=== PATIENT | female | born 1990 | race African-American/Black ===

== ENCOUNTER 2017-12-12 07:34 | Emergency (ER) | payer MEDICAID ==
[~2017-12-12] VITALS: Ht 162.6 cm; Wt 65.0 kg
[2017-12-12 08:33] LABS: CLARITY URINE TURBID (CLEAR); COLOR URINE YELLOW (YELLOW); KETONES URINE TRACE (NEGATIVE); LEUKOCYTE ESTERASE URINE 3+ (NEGATIVE); NITRITE URINE POSITIVE (NEGATIVE); OCCULT BLOOD URINE 3+ (NEGATIVE); PH URINE 6.5 (4.5-8.0); PROTEIN URINE 2+ (NEGATIVE); SPECIFIC GRAVITY URINE 1.028 (1.005-1.030)
[2017-12-12] MEDS ORDERED: IBUPROFEN 600MG TABLET PO ONE (09:45)
[2017-12-12 10:01] VITALS: BP 122/84
== END 2017-12-12 10:02 | disposition home or self-care (01) ==
LOC: ER 07:56
DX: N39.0 Urinary tract infection, site not specified (principal); F17.200 Nicotine dependence, unspecified, uncomplicated; F12.10 Cannabis abuse, uncomplicated
CPT/HCPCS: 81003; 81025; 87077; 87086; 87186; 99284; Z7610

== ENCOUNTER 2018-01-08 08:33 | Emergency (ER) | payer MEDICAID, OTHER ==
[~2018-01-08] VITALS: Ht 162.6 cm; Wt 64.0 kg
[2018-01-08] MEDS ORDERED: DIAZEPAM 2 MG TABLET PO ONE (10:30)
[2018-01-08] MEDS ORDERED: MECLIZINE 25MG TABLET PO ONE (10:30)
[2018-01-08] MEDS ORDERED: ONDANSETRON 4MG ODT PO ONE (10:30)
[2018-01-08 11:06] LABS: BASOPHILS % 1.9 % (0.0-2.0); EOSINOPHILS % 3.4 % (0.0-5.0); HEMATOCRIT. 35.4 % (36.0-48.0); HEMOGLOBIN. 12.7 g/dL (12.0-16.0); LYMPHOCYTES % 37.5 % (20.0-50.0); MEAN CORPUSCULAR HEMOGLOBIN 34.2 pg (28.0-32.0); MEAN CORPUSCULAR VOLUME 95.6 fL (81.0-99.0); MEAN PLATELET VOLUME 7.9 fl (7.4-10.4); MONOCYTES % 6.7 % (2.0-8.0); NEUTROPHILS % 50.5 % (40.0-76.0); PLATELET 334 x1000/uL (130-400); RED CELL DISTRIBUTION WIDTH 12.5 % (11.6-14.6)
[2018-01-08 11:11] LABS: CHLORIDE 108 mEq/L (98-107)
[2018-01-08 11:57] LABS: HCG SCREEN NEGATIVE
[2018-01-08 12:11] VITALS: BP 114/69
== END 2018-01-08 13:11 | disposition home or self-care (01) ==
LOC: ER 08:33
DX: H81.09 Meniere's disease, unspecified ear (principal); R42 Dizziness and giddiness; F12.10 Cannabis abuse, uncomplicated; Z88.8 Allergy status to other drugs, medicaments and biological substances
CPT/HCPCS: 36415; 80048; 84703; 85025; 99284; Q0162; J8597

== ENCOUNTER 2018-01-30 08:18 | Emergency (ER) | payer MEDICAID ==
[~2018-01-30] VITALS: Ht 162.6 cm; Wt 66.0 kg
[2018-01-30 09:43] LABS: KETONES URINE TRACE (NEGATIVE); LEUKOCYTE ESTERASE URINE 3+ (NEGATIVE); NITRITE URINE NEGATIVE (NEGATIVE); OCCULT BLOOD URINE 3+ (NEGATIVE); PROTEIN URINE 2+ (NEGATIVE); SPECIFIC GRAVITY URINE 1.023 (1.005-1.030)
[2018-01-30 09:55] LABS: CLARITY URINE TURBID (CLEAR); COLOR URINE YELLOW (YELLOW)
[2018-01-30] MEDS ORDERED: PHENAZOPYRIDINE HCL 200MG TABLET PO ONE (12:30)
[2018-01-30] MEDS ORDERED: LEVOFLOXACIN 500MG TABLET PO ONE (12:30)
[2018-01-30] MEDS ORDERED: ONDANSETRON 4MG ODT PO ONE (12:30)
[2018-01-30] MEDS ORDERED: HYDROCODONE/ACETAMINOPHEN 5/325MG TABLET PO ONE (12:30)
[2018-01-30 14:10] VITALS: BP 114/66
== END 2018-01-30 14:15 | disposition home or self-care (01) ==
LOC: ER 10:22
DX: N39.0 Urinary tract infection, site not specified (principal); F12.10 Cannabis abuse, uncomplicated; Z88.8 Allergy status to other drugs, medicaments and biological substances
CPT/HCPCS: 81003; 81025; 87077; 87086; 87186; 99284; Q0162

== ENCOUNTER 2018-02-11 10:04 | Emergency (ER) | payer MEDICAID ==
[~2018-02-11] VITALS: Ht 162.6 cm; Wt 63.0 kg
[2018-02-11] MEDS ORDERED: SERT25TA PO (10:39)
[2018-02-11] MEDS ORDERED: ABIL5 PO (10:39)
[2018-02-11 17:04] VITALS: BP 110/82
== END 2018-02-11 17:48 | disposition home or self-care (01) ==
LOC: ER 11:12
DX: S60.211A Contusion of right wrist, initial encounter (principal); W22.8XXA Striking against or struck by other objects, initial encounter; Y93.K1 Activity, walking an animal; Y92.89 Other specified places as the place of occurrence of the external cause; Y99.0 Civilian activity done for income or pay; R03.0 Elevated blood-pressure reading, without diagnosis of hypertension; H81.09 Meniere's disease, unspecified ear; Z86.59 Personal history of other mental and behavioral disorders
CPT/HCPCS: 73110; 81025; 99284

== ENCOUNTER 2018-04-10 17:14 | Emergency (ER) | payer MEDICAID ==
[~2018-04-10] VITALS: Ht 162.6 cm; Wt 66.0 kg
[~2018-04-10 17:14] MED LIST: ABIL5 PO; SERT25TA PO
[2018-04-10] MEDS ORDERED: LORATADINE 10MG TABLET PO SCH (19:30)
[2018-04-10] MEDS ORDERED: BACITRACIN ZINC OINT UDPKT TOP ONE (19:45)
[2018-04-10 20:25] VITALS: BP 134/72
== END 2018-04-10 20:54 | disposition home or self-care (01) ==
LOC: ER 18:02
DX: L71.0 Perioral dermatitis (principal); L08.89 Other specified local infections of the skin and subcutaneous tissue; R03.0 Elevated blood-pressure reading, without diagnosis of hypertension; F31.9 Bipolar disorder, unspecified; Z88.8 Allergy status to other drugs, medicaments and biological substances; F12.90 Cannabis use, unspecified, uncomplicated
CPT/HCPCS: 99283